=== PATIENT | female | born 1990 | race Caucasian/White ===

== ENCOUNTER 2017-01-10 21:15 | Emergency (ER) | payer BC ==
[~2017-01-10] VITALS: Ht 162.6 cm; Wt 73.0 kg
[2017-01-10 21:21] VITALS: BP 125/82
[2017-01-10] MEDS ORDERED: PROPARACAINE OPHTH 0.5%, 15ML ONE (21:32)
[2017-01-10] MEDS ORDERED: FLUORESCEIN OPHTHALMIC 1 MG STRIP ONE (21:32)
== END 2017-01-10 22:32 | disposition home or self-care (01) ==
LOC: ED 22:19
DX: H11.31 Conjunctival hemorrhage, right eye (principal); H57.11 Ocular pain, right eye
CPT/HCPCS: 99281; 99282; 99283

== ENCOUNTER 2021-04-27 11:38 | Outpatient (CLI) | payer BC ==
[~2021-04-27] VITALS: Ht 162.6 cm; Wt 96.6 kg
[2021-04-27 12:20] LABS: MICROSCOPIC INDICATED
[2021-04-27 12:28] LABS: CREATININE,URINE RANDOM 27.3 mg/dL
[2021-04-27 12:39] LABS: BASOPHILS % (AUTO) 0 % (0-1); EOSINOPHILS % (AUTO) 1 % (1-7); LYMPHOCYTES % (AUTO) 17 % (22-44); MEAN CORPUSCULAR HEMOGLOBIN 25.7 pg (27.0-34.8); MEAN CORPUSCULAR HGB CONC 32.3 g/dL (32.4-35.8); MEAN PLATELET VOLUME 8.8 fL (7.4-10.4); MONOCYTES % (AUTO) 8 % (2-9); NEUTROPHILS % (AUTO) 74 % (42-75); PLATELET COUNT 249 x10^3/uL (130-400); RED BLOOD COUNT 4.46 x10^6/uL (3.82-5.3); RED CELL DISTRIBUTION WIDTH 14.5 % (9.6-15.2)
[2021-04-27 12:48] LABS: ALANINE AMINOTRANSFERASE 16 U/L (12-78); ALBUMIN 2.3 g/dL (3.4-5.0); ANION GAP 7 mmol/L (5-15); CALCIUM 9.2 mg/dL (8.5-10.1); CHLORIDE 107 mmol/L (98-107); CREATININE 0.51 mg/dL (0.55-1.02)
[2021-04-27 12:50] LABS: ALKALINE PHOSPHATASE 109 U/L (45-117); BILIRUBIN,TOTAL 0.2 mg/dL (0.2-1.0); TOTAL PROTEIN 6.6 g/dL (6.4-8.2)
[2021-04-27 12:51] LABS: BILIRUBIN, DIRECT < 0.1 mg/dL (0.1-0.2)
== END 2021-04-27 13:20 | disposition home or self-care (01) ==
LOC: LDOP 11:38
PROVIDERS: ATTEND Obstetrics & Gynecology
DX: O13.3 Gestational [pregnancy-induced] hypertension without significant proteinuria, third trimester (principal); Z3A.38 38 weeks gestation of pregnancy
CPT/HCPCS: 36415; 59025; 80053; 81001; 82248; 82570; 84156; 84550; 85025

== ENCOUNTER 2021-05-12 02:50 | Inpatient (IN) | payer BC ==
[~2021-05-12] VITALS: Ht 162.6 cm; Wt 100.0 kg
[2021-05-12] MEDS ORDERED: LIDOCAINE 1%, 20ML ONE (21:26)
[2021-05-12] MEDS ORDERED: MISOPROSTOL 200 MCG TABLET ONE (21:26)
[2021-05-12] MEDS ORDERED: NEWBORN KIT ONE (21:26)
[2021-05-12] MEDS ORDERED: FENTANYL PF 100 MCG/2ML IV PRN (21:30)
[2021-05-12] MEDS ORDERED: D5%-LACTATED RINGERS 1,000 ML IV SCH (21:30)
[2021-05-12] MEDS ORDERED: FENTANYL PF 100 MCG/2ML IVPush PRN (21:30)
[2021-05-12] MEDS ORDERED: MISOPROSTOL 25 MCG TABLET VG PRN (21:30)
[2021-05-12] MEDS ORDERED: CALCIUM CARBONATE 500 MG TAB.CHEW PO PRN (21:30)
[2021-05-12] MEDS ORDERED: OXYTOCIN 30U/ 0.9% NaCL 500ML 500 ML IV ONE (21:30)
[2021-05-12] MEDS ORDERED: TERBUTALINE 1 MG/ML, 1ML SQ PRN (21:30)
[2021-05-12] MEDS: PLEASE ENTER HEIGHT AND WEIGHT MC SCH (21:30)
[2021-05-12] MEDS ORDERED: TERBUTALINE 1 MG/ML, 1ML IVPush PRN (21:30)
[2021-05-12] MEDS ORDERED: ONDANSETRON 2MG/ML, 2ML IVPush PRN (21:30)
[2021-05-12 21:39] LABS: BASOPHILS % (AUTO) 1 % (0-1); EOSINOPHILS % (AUTO) 1 % (1-7); LYMPHOCYTES % (AUTO) 24 % (22-44); MEAN CORPUSCULAR HEMOGLOBIN 25.9 pg (27.0-34.8); MEAN CORPUSCULAR HGB CONC 33.3 g/dL (32.4-35.8); MEAN PLATELET VOLUME 9.2 fL (7.4-10.4); MONOCYTES % (AUTO) 6 % (2-9); NEUTROPHILS % (AUTO) 69 % (42-75); PLATELET COUNT 261 x10^3/uL (130-400); RED BLOOD COUNT 4.58 x10^6/uL (3.82-5.3); RED CELL DISTRIBUTION WIDTH 15.5 % (9.6-15.2)
[2021-05-12] MEDS: LACTATED RINGERS 1,000 ML IV SCH (22:13)
[2021-05-12 22:45] VITALS: BP 126/84
[2021-05-13] MEDS: PLEASE ENTER HEIGHT AND WEIGHT MC SCH ×3 (05:30→21:30)
[2021-05-13] MEDS ORDERED: OXYTOCIN 30U/ 0.9% NaCL 500ML 500 ML IV PRN (07:00)
[2021-05-13] MEDS: LACTATED RINGERS 1,000 ML IV SCH (08:33)
[2021-05-13] MEDS ORDERED: FENTANYL/BUPIV./NS/PF 250 ML EPIDCONT ONE (09:19)
[2021-05-13] MEDS ORDERED: BUPIVACAINE 0.25% ONE (09:19)
[2021-05-13] MEDS ORDERED: LACTATED RINGERS 1,000 ML IV SCH (10:00)
[2021-05-13] MEDS ORDERED: ONDANSETRON 2MG/ML, 2ML IVPush PRN (10:00)
[2021-05-13] MEDS ORDERED: NALOXONE 0.4 MG/ML, 1ML IVPush PRN (10:00)
[2021-05-13] MEDS ORDERED: EPHEDRINE 50 MG/ML, 1ML IVPush PRN (10:00)
[2021-05-13] MEDS ORDERED: LACTATED RINGERS 1,000 ML IVBOLUS PRN (10:00)
[2021-05-13] MEDS ORDERED: FENTANYL/BUPIV./NS/PF 250 ML EPIDCONT SCH (10:00)
[2021-05-13] MEDS ORDERED: DIPHENHYDRAMINE 50 MG/ML, 1ML IVPush PRN (10:00)
[2021-05-13] MEDS ORDERED: METHYLERGONOVINE 0.2 MG/ML IM PRN (19:00)
[2021-05-13] MEDS ORDERED: MAGNESIUM HYDROXIDE 8%, 30ML UDC PO PRN (19:00)
[2021-05-13] MEDS ORDERED: SIMETHICONE 80 MG CHEW TAB PO PRN (19:00)
[2021-05-13] MEDS ORDERED: CARBOPROST TROMETHAMINE 250 MCG/ML, 1ML IM PRN (19:00)
[2021-05-13] MEDS ORDERED: IBUPROFEN 600 MG TABLET PO PRN (19:00)
[2021-05-13] MEDS ORDERED: METOCLOPRAMIDE 5 MG/ML, 2ML IV PRN (19:00)
[2021-05-13] MEDS ORDERED: ACETAMINOPHEN 325 MG TABLET PO PRN ×2 (19:00)
[2021-05-13] MEDS ORDERED: MISOPROSTOL 200 MCG TABLET PR PRN (19:00)
[2021-05-13] MEDS ORDERED: BISACODYL 10 MG SUPP PR PRN (19:00)
[2021-05-13] MEDS ORDERED: CALCIUM CARBONATE 500 MG TAB.CHEW PO PRN (19:00)
[2021-05-13] MEDS: OXYTOCIN 30U/ 0.9% NaCL 500ML 500 ML IV SCH (19:00)
[2021-05-13] MEDS ORDERED: ONDANSETRON 2MG/ML, 2ML IV PRN (19:00)
[2021-05-13] MEDS ORDERED: GLYCERIN ADULT SUPP PR PRN (19:00)
[2021-05-13] MEDS ORDERED: OXYcodone/APAP 5/325MG TABLET PO PRN ×2 (19:00)
[2021-05-13 21:26] VITALS: BP 124/70
[2021-05-14 00:03] VITALS: BP 111/71
[2021-05-14 02:55] LABS: BASOPHILS % (AUTO) 1 % (0-1); EOSINOPHILS % (AUTO) 0 % (1-7); LYMPHOCYTES % (AUTO) 9 % (22-44); MEAN CORPUSCULAR HEMOGLOBIN 25.5 pg (27.0-34.8); MEAN CORPUSCULAR HGB CONC 32.8 g/dL (32.4-35.8); MEAN PLATELET VOLUME 8.8 fL (7.4-10.4); MONOCYTES % (AUTO) 6 % (2-9); NEUTROPHILS % (AUTO) 84 % (42-75); PLATELET COUNT 193 x10^3/uL (130-400); RED BLOOD COUNT 4.11 x10^6/uL (3.82-5.3); RED CELL DISTRIBUTION WIDTH 15.7 % (9.6-15.2)
[2021-05-14 04:11] VITALS: BP 102/65
[2021-05-14] MEDS: PLEASE ENTER HEIGHT AND WEIGHT MC SCH (04:25)
[2021-05-14] MEDS: OXYTOCIN 30U/ 0.9% NaCL 500ML 500 ML IV SCH ×2 (04:25→15:00)
[2021-05-14] MEDS: PRENATAL VIT/IRON/FA 1 EACH TABLET PO SCH (07:39)
[2021-05-14] MEDS: DOCUSATE 100 MG CAPSULE PO PRN ×2 (07:39→21:15)
[2021-05-14 08:00] VITALS: BP 102/68
[2021-05-14 12:09] VITALS: BP 115/84
[2021-05-14 20:00] VITALS: BP 123/86
[2021-05-15] MEDS: OXYTOCIN 30U/ 0.9% NaCL 500ML 500 ML IV SCH ×2 (01:00→11:00)
[2021-05-15] MEDS: PRENATAL VIT/IRON/FA 1 EACH TABLET PO SCH (07:35)
[2021-05-15 07:40] VITALS: BP 118/85
== END 2021-05-15 12:34 | disposition home or self-care (01) | DRG 807 ==
LOC: LDIP 21:04 → 2NW 05-13 20:38
PROVIDERS: ADMIT Obstetrics & Gynecology; ATTEND Obstetrics & Gynecology
PROC: 10E0XZZ Delivery of Products of Conception, External Approach (ICD-10-PCS; principal; 2021-05-13)
PROC: 0KQM0ZZ Repair Perineum Muscle, Open Approach (ICD-10-PCS; 2021-05-13)
PROC: 3E0DXGC Introduction of Other Therapeutic Substance into Mouth and Pharynx, External Approach (ICD-10-PCS; 2021-05-13)
PROC: 3E0R3BZ Introduction of Anesthetic Agent into Spinal Canal, Percutaneous Approach (ICD-10-PCS; 2021-05-13)
PROC: 00HU33Z Insertion of Infusion Device into Spinal Canal, Percutaneous Approach (ICD-10-PCS; 2021-05-13)
PROC: 0U7C7ZZ Dilation of Cervix, Via Natural or Artificial Opening (ICD-10-PCS; 2021-05-13)
PROC: 10907ZC Drainage of Amniotic Fluid, Therapeutic from Products of Conception, Via Natural or Artificial Opening (ICD-10-PCS; 2021-05-13)
DX: O77.0 Labor and delivery complicated by meconium in amniotic fluid (principal); Z37.0 Single live birth; O48.0 Post-term pregnancy; Z20.822 Contact with and (suspected) exposure to COVID-19; Z3A.40 40 weeks gestation of pregnancy; Z80.0 Family history of malignant neoplasm of digestive organs; Z80.3 Family history of malignant neoplasm of breast; O70.1 Second degree perineal laceration during delivery
CPT/HCPCS: 36415; 85025; 86592; 86850; 86900; 87635; G0378; J2590; J3010; J7120